=== PATIENT | male | born 1960 | race Caucasian/White ===

== ENCOUNTER 2016-12-06 18:40 | Inpatient (IN) | payer OTHER ==
--- NOTE | ~2016-12-06 | DS ---
Discharge Summary [facility] [address] [place]. [address] NAME: CHRISTOPHE AGUERO : 56 STATUS : DIS IN PAT#: [id number] AGE: 56 ADM/REG DATE : 12/06/16 MR#: [id number] REPORT SERV DATE: 12/09/16 DICTATED BY: DATE: REPORT STATUS : Draft TRANSCRIBED BY: MODL DATE: 12/08/16 ADMISSION DATE: 12/06/2016 DISCHARGE DATE: 12/08/2016 DISCHARGE DIAGNOSES: 1. Syncope. 2. Chronic atrial fibrillation. 3. Orthostasis. 4. Systolic heart failure with ejection fraction of 30%. DISCHARGE MEDICATIONS: Include diltiazem ER 180 mg p.o. b.i.d., Lexapro 20 mg p.o. at bedtime, Toprol-XL 50 mg p.o. b.i.d., Aldactone 25 mg p.o. daily, Jantoven 7 mg p.o. at bedtime. CONSULTING PHYSICIAN: Include [facility] Cardiology Dr. Smiley. IMAGING: Includes CT of the brain without contrast which demonstrated some mild generalized atrophy. There was no evidence of an intracranial bleed. He did have some soft tissue swelling over the left supraorbital region. Echocardiogram was performed, demonstrated systolic heart failure with ejection fraction of 30% and a mildly dilated left ventricle with severe global left ventricular systolic dysfunction. No evidence of left ventricular thrombus was noted. Left ventricular diastolic function was not assessed. Normal right ventricular size and systolic function. No significant valvular disease was noted. For full H and P, please refer to Dr. Figueroa Layton's dictation on 12/06/2016. Please also see Dr. Aron Smiley's consultation dictation on 12/06/2016. HOSPITAL COURSE/PROBLEM LIST: 1. Syncope. The patient has not had a syncopal episode since he has been in the hospital. As mentioned above, [facility] Cardiology was consulted. He has had orthostatic hypotension since he has been here. His medications have been adjusted per [facility] including his metoprolol-XL being decreased from 100 to 50 mg p.o. daily. We are going to hold his ARB as well as his Lasix. He was dehydrated upon admission, which is now resolved. 2. Chronic atrial fibrillation. He is rate controlled with the metoprolol and Cardizem. He is also on Jantoven. We will continue his home dose per [facility] recommendations. He is getting a LifeVest prior to discharge for his systolic heart failure, ejection fraction 30%, to bridge to an AICD as an outpatient. He will follow up with Dr. Yogesh Cooper, in 2 weeks after discharge. CLR/MODL [place] Discharge Summary [address] [address] NAME: CHRISTOPHE AGUERO : 56 STATUS : DIS IN PAT#: [id number] AGE: 56 ADM/REG DATE : 12/06/16 MR#: [id number] REPORT SERV DATE: 12/09/16 DICTATED BY: DATE: REPORT STATUS : Draft TRANSCRIBED BY: MODL DATE: 12/08/16 Brock Lyman NP / [id number] CC: MD Wilbert Ashton M.D. Allen E Atchley, M.D. Gregory Keith Bruce, M.D.
--- NOTE | ~2016-12-06 | CN ---
Consultation Report [facility] [address] [place]. [address] NAME: NICK AGUERO : 56 STATUS : ADM Tasneem PAT#: [id number] AGE: 56 ADM/REG DATE : 12/06/16 MR#: [id number] REPORT SERV DATE: 12/07/16 DICTATED BY: ARON SMILEY DATE: 12/07/16 REPORT STATUS : Draft TRANSCRIBED BY: MODL DATE: 12/07/16 CARDIOLOGY CONSULTATION DATE OF CONSULTATION: REQUESTING PROVIDER: Filiberto Vargas MD and Hospitalist Service. INDICATIONS: Syncope, dilated cardiomyopathy, persistent atrial fibrillation. HISTORY OF PRESENT ILLNESS: Nick Aguero is a 56-year-old, white male, who was diagnosed with a nonischemic cardiomyopathy with an ejection fraction of 25% and LV apical thrombus in 09/15/2016. He presented with atrial fibrillation and RVR. He had been placed on anticoagulation. He has had some dizzy spells. He was seen by his primary provider and asked to watch his blood pressure closely. Then yesterday, while walking he felt dizzy, weak, and fell, did have loss of consciousness. It was not a sudden event, both the falling he did sustain a left orbital hematoma. He was admitted overnight. Orthostatic vital signs were abnormal, orthostatic vital signs in the emergency room systolic dropped from 130 to 109. Orthostatic vital signs this morning, systolic dropped from 108 to 86. The patient's ARB and diuretics have been held. He has no focal complaints at the present time. He has no complaints of chest pains or shortness of breath. No orthopnea or PND. PAST MEDICAL HISTORY: Nonischemic cardiomyopathy, expressive aphasia, persistent atrial fibrillation, hypertension, coronary arteriogram without obstructive CAD, 09/2016. HOME MEDICATIONS: Listed in [facility] Form and reviewed. ALLERGIES: NONE KNOWN. SOCIAL HISTORY: Lives with significant other. No tobacco. No alcohol. Typically active. FAMILY HISTORY: Reviewed and noncontributory. REVIEW OF SYSTEMS: As per the HPI. Otherwise, all review of systems negative. PHYSICAL EXAMINATION: VITAL SIGNS: Blood pressure currently 137/70, pulse 74, respiratory rate is 18. GENERAL: Appears stated age, no distress. EYES: Sclerae anicteric, no arcus senilis. MOUTH: Oral mucosa moist, lips acyanotic. NECK: Jugular venous pressure normal, no carotid bruits. LUNGS: Clear to auscultation bilaterally, normal inspiratory effort. CARDIAC: Regular rate and irregular rhythm, no murmurs, gallops or rubs. ABDOMEN: Soft, nondistended, nontender. Consultation Report [facility] [place]. [address] NAME: NICK AGUERO : 56 STATUS : ADM Tasneem PAT#: [id number] AGE: 56 ADM/REG DATE : 12/06/16 MR#: [id number] REPORT SERV DATE: 12/07/16 DICTATED BY: ARON SMILEY DATE: 12/07/16 REPORT STATUS : Draft TRANSCRIBED BY: MODL DATE: 12/07/16 EXTREMITIES: No edema. SKIN: Warm and dry. NEURO/PSYCH: Alert and oriented, nonfocal, mood appropriate. DATA: Sodium 142, potassium 3.9, creatinine 1.2. Hemoglobin 14. INR 3. Troponin, negative. TSH 5.3. ECG is atrial fibrillation. Repeat echocardiogram has been ordered. Echo lab contacted and advised that the procedure likely will not be performed today. IMPRESSION: 1. Syncope in the context of orthostatic hypotension. 2. Dilated cardiomyopathy with suspicion for possible tachycardia induced process, although unclear at the present time. 3. Apical thrombus, on therapeutic anticoagulation. 4. Persistent atrial fibrillation. RECOMMENDATIONS: Hold diuretics and ARB. Hold warfarin tonight. Re-evaluate LV systolic function. Consider role for possible LifeVest. Follow orthostatic vital signs. ISELA/JERONIMO Aron Smiley M.D. / [id number] CC: MD Wilbert Ashton M.D.
--- NOTE | ~2016-12-06 | HP ---
History And Physical [facility] [address] [facility] [place]. [address] NAME: CHRISTOPHE AGUERO : 56 STATUS : ADM Tasneem PAT#: [id number] AGE: 56 ADM/REG DATE : 12/06/16 MR#: [id number] REPORT SERV DATE: 12/06/16 DICTATED BY: FIGUEROA ADAMS DATE: 12/06/16 REPORT STATUS : Draft TRANSCRIBED BY: MODL DATE: 12/06/16 DATE OF ADMISSION: 12/06/2016 CHIEF COMPLAINT: Syncope and collapse at home. HISTORY OF PRESENT ILLNESS: This is a 56-year-old male with a history of atrial fibrillation; left ventricular thrombus, on anticoagulation; and severe systolic heart failure with ejection fraction of 20%. He was at home today and had a sudden episode of syncope and fall with closed head injury and subsequently was brought to the emergency room at [facility]. History is obtained from the patient, but due to chronic aphasia, his was interpreting. His data on [employer] was also reviewed. According to available data, Mr. Aguero was at home and in his usual state of health, when he went over to the kitchen to put away a cup and he suddenly fell down. He reports that he felt a little dizzy and the next thing he was going down. He also hit his head against the floor with a bruise to his left forehead and around his eye. He was brought to the emergency room to be evaluated. His reports that he was out briefly about a second or so. He had no neurological deficits or postictal state after he came to. In the emergency room, initial workup including CT of the brain and face were negative for any acute pathology. EKG showed atrial fibrillation at a rate of 65 without any other changes. He did have orthostasis in the emergency room. His INR was 2.9 today and Hospitalist Service was asked to admit him for further evaluation and treatment. At the time of my evaluation, he denied any chest pain, palpitations, or orthopnea. He had no cough, hemoptysis, night sweats, or weight loss. He denied any fevers, chills, nausea, vomiting, diarrhea recently. He had no hematemesis, hematochezia, or hematuria. No other history of recent travel or exposures other than those mentioned above. PAST MEDICAL HISTORY: Significant for history of left ventricular apical thrombus, on warfarin for anticoagulation; history of systolic congestive heart failure with an ejection fraction of 20%; history of venous thromboembolism; chronic aphasia. SOCIAL HISTORY: He does not smoke, drink, or use recreational drugs. FAMILY HISTORY: Noncontributory. MEDICATIONS AT HOME: Reviewed by me in the chart today and reordered by me. REVIEW OF SYSTEMS: As in history of present illness. All other systems were reviewed in detail and are quite unremarkable. PHYSICAL EXAMINATION: GENERAL: This is a pleasant 56-year-old, not in any acute distress, although he responds very appropriately, he has chronic expressive aphasia. History And Physical [address] [place]. [address] NAME: CHRISTOPHE AGUERO : 56 STATUS : ADM Tasneem PAT#: [id number] AGE: 56 ADM/REG DATE : 12/06/16 MR#: [id number] REPORT SERV DATE: 12/06/16 DICTATED BY: FIGUEROA ADAMS DATE: 12/06/16 REPORT STATUS : Draft TRANSCRIBED BY: JERONIMO DATE: 12/06/16 HEENT: He has a bruise and hematoma around his left eye, otherwise head was atraumatic. His pupils were equal, reacting to light, and accommodating. External ocular muscles were intact. Membranes were moist and pink. Sclerae are nonicteric. NECK: Supple with no jugular venous distention, lymphadenopathy, or thyromegaly. LUNGS: Clear to auscultation with no wheezes, rubs, or crackles. HEART: Sounds were regular with no murmurs, rubs, or gallops. ABDOMEN: Soft, nontender. Bowel sounds are present. EXTREMITIES: Showed no cyanosis, clubbing, or edema. NEUROLOGIC: Grossly intact. No focal sensory or motor deficits. He has chronic aphasia. VITAL SIGNS: His temperature today was 97.6, pulse 66, respirations 16 a minute, blood pressure was 151/98, oxygen saturations were 100% on 2 L of oxygen via nasal cannula. LABORATORY DATA: Reviewed on the [employer] system showed a sodium of 140, potassium 4.5, chloride 104, and CO2 of 29, BUN was 18 with a creatinine of 1.34, and blood glucose was 98. Liver numbers appeared within normal limits. Today, troponin was 0.02. CBC was essentially within normal limits. Urinalysis was not performed today. Films of the CT of the brain and face were reviewed by me on the PACS today. Official Radiology comments were also reviewed. There is no acute pathology. A 12-lead EKG done in the emergency room was reviewed and interpreted by me. There is atrial fibrillation with a rate of [address]-T changes. IMPRESSION: 1. Syncope. 2. Closed head injury. 3. Left ventricular thrombus, on anticoagulation. 4. Orthostasis. 5. Chronic aphasia. 6. Severe systolic congestive heart failure with an ejection fraction of 20%. PLAN: We will admit Mr. Aguero to the Hospitalist Service with telemetry for a 24-hour observation. We will start him on IV fluids very cautiously due to his severe systolic congestive heart failure. We will give him 500 mL of lactated Ringer's and re-evaluate. Meanwhile, he will be on strict bedrest. CT of the head and face was negative. We will continue to monitor him with neuro checks done every four hours as he is on anticoagulation with INR of 2.9 today. His atrial fibrillation is rate controlled. We will go ahead and monitor him closely. We will go ahead and consult Cardiology Service to evaluate him in the morning as well as he has had one prior episode of syncope in a similar fashion. He is on warfarin with an INR of 2.9. We will hold his warfarin tonight and check his PT/INR in the morning. We will continue all other medications as ordered. Please see today's orders for details. I have discussed the above plans with the patient and his . Questions were answered and they are agreeable to the above recommendations. Hospitalist Service will be following him during his stay here. MR/VARGASL History And Physical [address] [address] NAME: CHRISTOPHE AGUERO : 56 STATUS : ADM Tasneem PAT#: [id number] AGE: 56 ADM/REG DATE : 12/06/16 MR#: [id number] REPORT SERV DATE: 12/06/16 DICTATED BY: FIGUEROA ADAMS DATE: 12/06/16 REPORT STATUS : Draft TRANSCRIBED BY: JERONIMO DATE: 12/06/16 Figueroa Adams M.D. / [id number] CC: MD Wilbert Ashton M.D.
[2016-12-06 18:23] LABS: BASOPHILS 0.5 %; BASOPHILS ABSOLUTE 0.04 10/3/uL (0.0-0.16); EOSINOPHILS 2.1 %; EOSINOPHILS ABSOLUTE 0.15 10/3/uL (0.0-0.53); ER CBC TAT 0 Hrs 07 Mins; HEMATOCRIT 44.3 % (40.0-51.0); HEMOGLOBIN 14.6 g/dL (13.6-17.8); IMMATURE GRANULOCYTES 0.4 %; IMMATURE GRANULOCYTES ABSOLUTE 0.03 10/3/uL (0.0-0.11); LYMPHOCYTES 22.8 %; LYMPHOCYTES ABSOLUTE 1.66 10/3/uL (0.67-4.30); MEAN CORPUSCULAR HEMOGLOB 26.9 pg (26.0-34.0); MEAN PLATELET VOLUME 11.1 fL (9.2-13.0); MONOCYTES 11.1 %; MONOCYTES ABSOLUTE 0.81 10/3/uL (0.21-1.20); NEUTROPHILS 63.1 %; NEUTROPHILS ABSOLUTE 4.59 10/3/uL (2.02-8.40); RBC DISTRIBUTION WIDTH 14.7 % (12.0-16.0); RED CELL COUNT 5.43 10/6/uL (4.7-6.1); WHITE BLOOD CELLS 7.3 10/3/uL (4.5-10.5)
[2016-12-06 18:25] LABS: MANUAL DIFF NO %; MEAN CORPUSCULAR VOLUME 81.6 fL (80-100); PLATELET COUNT 236 10/3/uL (150-400)
[2016-12-06 18:29] LABS: INTERNATIONAL NORMAL RATI 2.9 UNITS (-); PARTIAL THROMBO TIME 42.6 SEC (22.5-37.2); PROTIME (NOT ORD) 29.7 SEC (12.0-14.5)
[2016-12-06 18:37] LABS: BUN (BLOOD UREA NITROGEN) 18 MG/DL (6-23); CALCIUM, SERUM 8.7 MG/DL (8.5-10.4); CHEST PAIN PROFILE TAT 0 Hrs 21 Mins; CHLORIDE, SERUM 104 MMOL/L (96-112); CO2 (CARBON DIOXIDE) 29 MMOL/L (24-34); CREATININE 1.34 MG/DL (0.70-1.30); GFR AFRICAN AMERICAN 67 ML/MIN (>=60); GFR NON AFRICAN AMERICAN 58 ML/MIN (>=60); GLUCOSE, SERUM 98 MG/DL (60-99); POTASSIUM, SERUM 4.5 MMOL/L (3.5-5.3); SODIUM, SERUM 140 MMOL/L (135-148); TROPONIN I <0.02 NG/ML (<0.05)
[~2016-12-06 18:40] MED LIST: ADVIL PO; C5 PO; CARDCD180 PO; COZ25 PO; FLONASE NAS; L20 PO; LEXAPRO20 PO; MICARDIS20 MG PO; P10 PO; PROAIRRESP INH; SPIRO25 PO; TESSALON200 MG PO; TOPXL100 PO; Z-PAK PO
[2016-12-06] MEDS ORDERED: SPIRO25 PO (20:58)
[2016-12-06] MEDS ORDERED: DILT-XR180 MG PO (20:58)
[2016-12-06] MEDS ORDERED: L20 PO (20:59)
[2016-12-06] MEDS ORDERED: TOPXL100 PO (20:59)
[2016-12-06] MEDS ORDERED: JANTOVEN1 MG PO (21:00)
[2016-12-06] MEDS ORDERED: COZ25 PO (21:00)
[2016-12-06] MEDS ORDERED: LEXAPRO20 PO (21:00)
[2016-12-07 04:36] LABS: BASOPHILS ABSOLUTE 0.06 10/3/uL (0.0-0.16); EOSINOPHILS 2.2 %; EOSINOPHILS ABSOLUTE 0.14 10/3/uL (0.0-0.53); HEMATOCRIT 42.6 % (40.0-51.0); IMMATURE GRANULOCYTES 0.5 %; IMMATURE GRANULOCYTES ABSOLUTE 0.03 10/3/uL (0.0-0.11); LYMPHOCYTES 32.6 %; LYMPHOCYTES ABSOLUTE 2.03 10/3/uL (0.67-4.30); MEAN CORPUS HGB CONC 32.9 g/dL (32.0-36.0); MEAN CORPUSCULAR HEMOGLOB 26.8 pg (26.0-34.0); MEAN CORPUSCULAR VOLUME 81.6 fL (80-100); MONOCYTES 10.6 %; MONOCYTES ABSOLUTE 0.66 10/3/uL (0.21-1.20); NEUTROPHILS 53.1 %; NEUTROPHILS ABSOLUTE 3.31 10/3/uL (2.02-8.40); PLATELET COUNT 239 10/3/uL (150-400); RBC DISTRIBUTION WIDTH 14.5 % (12.0-16.0); RED CELL COUNT 5.22 10/6/uL (4.7-6.1); WHITE BLOOD CELLS 6.2 10/3/uL (4.5-10.5)
[2016-12-07 04:44] LABS: MANUAL DIFF NO %
[2016-12-07 04:58] LABS: BUN (BLOOD UREA NITROGEN) 16 MG/DL (6-23); CALCIUM, SERUM 8.5 MG/DL (8.5-10.4); CHLORIDE, SERUM 105 MMOL/L (96-112); CO2 (CARBON DIOXIDE) 27 MMOL/L (24-34); CREATININE 1.22 MG/DL (0.70-1.30); GFR AFRICAN AMERICAN 75 ML/MIN (>=60); GFR NON AFRICAN AMERICAN 65 ML/MIN (>=60); GLUCOSE, SERUM 99 MG/DL (60-99); POTASSIUM, SERUM 3.9 MMOL/L (3.5-5.3); SODIUM, SERUM 142 MMOL/L (135-148)
[2016-12-07 05:04] LABS: PROTIME (NOT ORD) 30.5 SEC (12.0-14.5)
[2016-12-08 06:08] LABS: INTERNATIONAL NORMAL RATI 2.1 UNITS (-)
[2016-12-08 06:09] LABS: PROTIME (NOT ORD) 23.6 SEC (12.0-14.5)
[2016-12-08 06:28] LABS: CALCIUM, SERUM 9.1 MG/DL (8.5-10.4); CHLORIDE, SERUM 107 MMOL/L (96-112); CO2 (CARBON DIOXIDE) 26 MMOL/L (24-34); CREATININE 1.25 MG/DL (0.70-1.30); FREE T4 0.95 NG/DL (0.76-1.46); GFR AFRICAN AMERICAN 73 ML/MIN (>=60); GFR NON AFRICAN AMERICAN 63 ML/MIN (>=60); GLUCOSE, SERUM 92 MG/DL (60-99); POTASSIUM, SERUM 4.5 MMOL/L (3.5-5.3); SODIUM, SERUM 142 MMOL/L (135-148)
[2016-12-08 06:30] LABS: BUN (BLOOD UREA NITROGEN) 20 MG/DL (6-23)
[2016-12-08] MEDS ORDERED: TOPXL50 PO (14:49)
== END 2016-12-08 17:58 | disposition home or self-care (01) | DRG 312 ==
LOC: ER 18:40 → 7NO 22:04
PROVIDERS: Emergency Medicine; Internal Medicine Pulmonary Disease; Nurse Practitioner Acute Care
DX: I95.1 Orthostatic hypotension (principal); I42.0 Dilated cardiomyopathy; I50.22 Chronic systolic (congestive) heart failure; I48.1 Persistent atrial fibrillation; R16.0 Hepatomegaly, not elsewhere classified; I48.2 Chronic atrial fibrillation; R47.01 Aphasia; I51.3 Intracardiac thrombosis, not elsewhere classified; W19.XXXA Unspecified fall, initial encounter; I49.1 Atrial premature depolarization; N28.9 Disorder of kidney and ureter, unspecified; D32.9 Benign neoplasm of meninges, unspecified; N28.1 Cyst of kidney, acquired; S05.12XA Contusion of eyeball and orbital tissues, left eye, initial encounter; Z79.01 Long term (current) use of anticoagulants; Z86.718 Personal history of other venous thrombosis and embolism; R79.89 Other specified abnormal findings of blood chemistry
CPT/HCPCS: 70450; 70486; 74170; 80048; 83735; 84100; 84439; 84443; 84484; 85025; 85610; 85730; 93005; 99285; A9270-GY; C8924; Q9957; Q9967